=== PATIENT | male | born 1950 ===

== ENCOUNTER 2019-12-17 08:19 | Observation (INO) ==
[2019-12-17] MEDS ORDERED: Isovue-370 500 ML BOTTLE IVP ONE (08:37)
[2019-12-17 08:48] LABS: Basophils # 0.1 K/mcL (0.0-0.2); Eosinophils # 0.3 K/mcL (0.0-0.6); Eosinophils % 4.7 %; Hematocrit 41.6 % (37.5-50.1); Hemoglobin 14.1 g/dL (12.9-16.9); Immature Granulocytes % 0.1 % (0-4); Lymphocytes # 1.8 K/mcL (0.6-4.6); Lymphocytes % 25.3 %; Mean Corpuscular HGB Conc 33.9 g/dL (31.6-35.5); Mean Corpuscular Hemoglobin 29.6 pg (28.0-33.3); Mean Corpuscular Volume 87.2 fL (83.0-100.0); Mean Platelet Volume 10.9 fL (9.4-12.4); Monocytes # 0.6 K/mcL (0.0-1.3); Monocytes % 7.8 %; Neutrophils # 4.4 K/mcL (1.6-8.9); Platelet Count 168 K/mcL (140-400); Red Blood Count 4.77 M/mcL (4.19-5.50); Red Cell Distribution Width 11.7 % (11.5-14.5); Segmented Neutrophils % 61.1 %; White Blood Count 7.2 K/mcL (4.3-11.1)
[2019-12-17 08:57] LABS: Prothrombin Time 11.3 Seconds (9.4-12.1)
[2019-12-17 09:00] LABS: Activated Partial Thrombo Time 34.4 Seconds (26.0-36.0)
[2019-12-17] MEDS ORDERED: Loratadine 10 MG TABLET PO PRN (09:00)
[2019-12-17 09:18] LABS: Alanine Aminotransferase 30 Units/L (7-52); Albumin 4.4 g/dL (3.5-5.7); Albumin/Globulin Ratio 1.5 (1.1-2.2); Alkaline Phosphatase 60 Units/L (34-104); Aspartate Amino Transferase 28 Units/L (13-39); BUN/Creatinine Ratio 16 (6-26); Bilirubin,Direct 0.1 mg/dL (0.0-0.2); Bilirubin,Indirect 0.5 mg/dL (0.0-1.0); Bilirubin,Total 0.6 mg/dL (0.3-1.0); Blood Urea Nitrogen 17 mg/dL (8-23); Calcium 9.3 mg/dL (8.6-10.3); Carbon Dioxide 25 mEq/L (23-29); Chloride 100 mEq/L (98-107); Globulin 2.9 g/dL (2.4-3.5); Glucose 353 mg/dL (70-105); Osmolality,Calculated 296 (280-300); Potassium 4.4 mEq/L (3.5-5.1); Sodium 135 mEq/L (136-145); Total Protein 7.3 g/dL (6.4-8.9); Troponin I 0.04 ng/mL (< 0.04); eGFR For African Americans > 60 (> 60); eGFR For Non-African Americans > 60 (> 60)
[2019-12-17] MEDS ORDERED: Nitroglycerin 0.4 MG TAB.SUBL SL PRN (09:45)
[2019-12-17] MEDS ORDERED: Aspirin 81 MG TAB.CHEW PO ONE (09:45)
[2019-12-17] MEDS ORDERED: Naloxone 0.4 MG/ML INJ IVP PRN (10:40)
[2019-12-17] MEDS ORDERED: *HR* Dextrose 50 % in Water (Vial) 50 ML VIAL IVP PRN (10:46)
[2019-12-17] MEDS ORDERED: Dextrose Gel 15 GM/37.5 ML TUBE PO PRN ×2 (10:46)
[2019-12-17] MEDS ORDERED: D5% in Water 1,000 ML IVC PRN (10:46)
[2019-12-17] MEDS ORDERED: Morphine Sulfate 2 MG/ML SYRINGE IVP PRN (10:47)
[2019-12-17] MEDS ORDERED: Perflutren Lipid Microsphere 1.3 ML in 0.9 % Sodium Chloride 8.7 ML IVP PRN (10:50)
[2019-12-17] MEDS ORDERED: *HR* Heparin 5,000 UNIT/ML VIAL IVP PRN ×2 (11:25)
[2019-12-17] MEDS ORDERED: *HR* Heparin 5,000 UNIT/ML VIAL IVP ONE (11:25)
[2019-12-17] MEDS ORDERED: Heparin 25,000UNIT/250ML 1/2NS 25,000 UNIT/250 ML IV.SOLN IVC SCH (11:30)
[2019-12-17] MEDS: Insulin LISPRO 300 UNITS/3 ML VIAL SQ SCH ×2 (12:21→17:14)
[2019-12-17] MEDS: Insulin DETEMIR 100 UNIT/ML X5UNITS SQ SCH (12:21)
[2019-12-17] MEDS: lisinopriL 10 MG TABLET PO SCH (12:42)
[2019-12-17] MEDS: carvediloL 6.25 MG TABLET PO SCH ×2 (12:42→17:14)
[2019-12-17] MEDS ORDERED: *HR* Heparin 5,000 UNIT/ML VIAL SQ SCH (14:00)
[2019-12-17] MEDS ORDERED: *HR* Heparin 10,000 UNIT/10 ML VIAL ONE (14:17)
[2019-12-17] MEDS ORDERED: Nitroglycerin 1,000 MCG/10 ML VIAL IV ONE (14:17)
[2019-12-17] MEDS ORDERED: Heparin 1,000 UNITS/500 mL 500 ML ONE (14:17)
[2019-12-17] MEDS ORDERED: 0.9 % Sodium Chloride 1,000 ML ONE (14:17)
[2019-12-17] MEDS ORDERED: ISOVUE-370 200 ML INFUS..BTL ONE (14:17)
[2019-12-17] MEDS ORDERED: *HR* Midazolam HCl 2 MG/2 ML VIAL ONE (14:45)
[2019-12-17] MEDS ORDERED: *HR* FentaNYL (PF) 100 MCG/2 ML VIAL ONE (14:46)
[2019-12-17] MEDS ORDERED: *HR* Bivalirudin 250 MG VIAL IVC ONE ×2 (15:08→15:25)
[2019-12-17 15:09] LABS: Chol/HDL Ratio 4.4 (0-4.9); Troponin I 0.07 ng/mL (< 0.04)
[2019-12-17] MEDS ORDERED: *HR* Ticagrelor 90 MG TABLET ONE (15:20)
[2019-12-17] MEDS ORDERED: carvediloL 6.25 MG TABLET PO SCH (17:00)
[2019-12-17] MEDS ORDERED: *HR* Atropine Sulfate 1 MG/10 ML SYRINGE ONE (20:50)
[2019-12-17] MEDS: lamoTRIgine 100 MG TABLET PO SCH (22:08)
[2019-12-18] MEDS: Insulin LISPRO 300 UNITS/3 ML VIAL SQ SCH ×3 (00:30→11:28)
[2019-12-18 00:49] LABS: Basophils # 0.1 K/mcL (0.0-0.2); Basophils % 0.6 %; Eosinophils # 0.3 K/mcL (0.0-0.6); Eosinophils % 2.6 %; Hematocrit 38.9 % (37.5-50.1); Hemoglobin 13.7 g/dL (12.9-16.9); Immature Granulocytes % 0.3 % (0-4); Lymphocytes % 20.3 %; Mean Corpuscular HGB Conc 35.2 g/dL (31.6-35.5); Mean Corpuscular Hemoglobin 31.5 pg (28.0-33.3); Mean Corpuscular Volume 89.4 fL (83.0-100.0); Monocytes # 0.6 K/mcL (0.0-1.3); Monocytes % 6.1 %; Neutrophils # 6.9 K/mcL (1.6-8.9); Platelet Count 168 K/mcL (140-400); Red Blood Count 4.35 M/mcL (4.19-5.50); Red Cell Distribution Width 11.8 % (11.5-14.5); Segmented Neutrophils % 70.1 %; White Blood Count 9.8 K/mcL (4.3-11.1)
[2019-12-18 01:03] LABS: BUN/Creatinine Ratio 13 (6-26); Blood Urea Nitrogen 14 mg/dL (8-23); Calcium 8.8 mg/dL (8.6-10.3); Carbon Dioxide 28 mEq/L (23-29); Chloride 103 mEq/L (98-107); Glucose 173 mg/dL (70-105); Osmolality,Calculated 291 (280-300); Potassium 3.9 mEq/L (3.5-5.1); Sodium 138 mEq/L (136-145); eGFR For African Americans > 60 (> 60); eGFR For Non-African Americans > 60 (> 60)
[2019-12-18] MEDS: lisinopriL 10 MG TABLET PO SCH (07:43)
[2019-12-18] MEDS: lamoTRIgine 100 MG TABLET PO SCH (07:43)
[2019-12-18] MEDS: carvediloL 6.25 MG TABLET PO SCH (07:44)
[2019-12-18] MEDS: Insulin DETEMIR 100 UNIT/ML X5UNITS SQ SCH (08:45)
[2019-12-18] MEDS ORDERED: PARoxetine 20 MG TABLET PO SCH (09:00)
[2019-12-18] MEDS ORDERED: Multivit/Ca/Min/Fe/FA 1 TAB TABLET PO SCH (09:00)
[2019-12-18] MEDS ORDERED: Aspirin Enteric Coated 81 MG Tablet PO SCH (09:00)
[2019-12-18] MEDS ORDERED: Triamcinolone Acet 0.1% CRM 15 GM TUBE TP SCH (09:00)
[2019-12-18] MEDS ORDERED: Folic Acid 1 MG TABLET PO SCH (09:00)
[2019-12-18] MEDS ORDERED: *HR* Ticagrelor 90 MG TABLET PO SCH (09:00)
[2019-12-18 10:20] VITALS: BP 131/96
== END 2019-12-18 13:21 | disposition home or self-care (01) ==
LOC: CDU 08:19 → EMEROOARM 08:19 → SUATTDRO 10:08 → CDU 10:36 → 2NNU 16:08
PROVIDERS: ADMIT Student in an Organized Health Care Education/Training Program; ATTEND Internal Medicine